=== PATIENT | female | born 1985 | race Caucasian/White ===

== ENCOUNTER 2020-11-23 11:28 | Inpatient (IN) | payer OTHER ==
[~2020-11-23] VITALS: Ht 165.1 cm; Wt 92.3 kg
[~2020-11-23 11:28] MED LIST: PRENPAK46 OR
[2020-11-23 13:12] LABS: Basophils # (auto) 0.1 10 ^3/uL (0-0.2); Basophils % (auto) 0.8 % (0.0-2.0); Eosinophils # (auto) 0.1 10 ^3/uL (0-0.8); Eosinophils % (auto) 1.4 % (0.0-7.0); Hematocrit 38.6 % (36.0-46.0); Hemoglobin 13.4 g/dL (12.2-16.2); Lymphocytes # (auto) 1.1 10 ^3/uL (0.4-5.4); Lymphocytes % (auto) 14.1 % (10.0-50.0); Mean Corpuscular Hemoglobin 32.3 pg (28.0-32.0); Mean Corpuscular Hgb Conc. 34.8 g/dL (32.0-36.0); Mean Corpuscular Volume 92.9 fL (80.0-100.0); Monocytes # (auto) 0.7 10 ^3/uL (0-1.3); Monocytes % (auto) 9.1 % (0.0-12.0); Neutrophils # (auto) 6.1 10 ^3/uL (1.6-8.6); Neutrophils % (auto) 74.6 % (37.0-80.0); Platelet Count (auto) 303 10^3/uL (140-450); Red Blood Cells 4.15 10^6/uL (4.0-5.20); Red Cell Distribution Width 13.2 % (11.8-14.3); White Blood Cell 8.1 10^3/uL (4.4-10.8)
[2020-11-23 13:27] LABS: Albumin 3.6 g/dL (3.4-5.0); BUN/Creatinine Ratio 13.9; Calcium 8.8 mg/dL (8.5-10.1); Potassium 4.1 mmol/L (3.5-5.1)
[2020-11-23 13:28] LABS: Partial Thromboplastin Time 29.4 sec (23.0-31.2)
[2020-11-23 13:31] LABS: Bilirubin, Total 0.6 mg/dL (0.2-1.0); Total Protein 7.8 g/dL (6.4-8.2)
[2020-11-23] MEDS ORDERED: NITROGLYCERIN 0.4 MG SL TAB SL PRN (13:45)
[2020-11-23] MEDS ORDERED: hydrALAZINE HCL 20 MG/ML VL IV PRN (13:45)
[2020-11-23] MEDS ORDERED: MORPHINE SULF INJ 2 MG/ML SYRINGE 1ML IV PRN (13:45)
[2020-11-23] MEDS: HYDROcodone-ACET 10/325MG TAB PO PRN (17:34)
[2020-11-23 17:47] LABS: Urine Bacteria FEW /hpf (None Seen); Urine Blood 3+ /uL (Negative); Urine Specific Gravity 1.005 (1.001-1.035); Urine WBC 1 /hpf (0 - 5)
[2020-11-23] MEDS ORDERED: cefTRIAXone 1GM/50ML D5W 50 ML IV SCH (19:00)
[2020-11-23 20:19] VITALS: BP 127/76
[2020-11-23] MEDS ORDERED: LORA-655 PO (20:33)
[2020-11-23] MEDS ORDERED: SERT50TA PO (20:33)
[2020-11-23] MEDS: MORPHINE SULF INJ 2 MG/ML SYRINGE 1ML IV PRN (21:28)
[2020-11-23 21:32] VITALS: BP 127/76
[2020-11-24] MEDS: HYDROcodone-ACET 10/325MG TAB PO PRN ×2 (01:40→06:37)
[2020-11-24 05:00] VITALS: BP 114/66
[2020-11-24 05:37] LABS: Basophils # (auto) 0 10 ^3/uL (0-0.2); Basophils % (auto) 0.5 % (0.0-2.0); Eosinophils # (auto) 0.3 10 ^3/uL (0-0.8); Eosinophils % (auto) 3.8 % (0.0-7.0); Hematocrit 34.9 % (36.0-46.0); Hemoglobin 12.5 g/dL (12.2-16.2); Lymphocytes # (auto) 1.5 10 ^3/uL (0.4-5.4); Mean Corpuscular Hemoglobin 33.1 pg (28.0-32.0); Mean Corpuscular Hgb Conc. 35.7 g/dL (32.0-36.0); Mean Corpuscular Volume 92.6 fL (80.0-100.0); Monocytes # (auto) 0.9 10 ^3/uL (0-1.3); Monocytes % (auto) 10.5 % (0.0-12.0); Neutrophils # (auto) 6.1 10 ^3/uL (1.6-8.6); Neutrophils % (auto) 68.2 % (37.0-80.0); Nucleated Red Blood Cells % 0.2 %; Platelet Count (auto) 286 10^3/uL (140-450); Red Blood Cells 3.77 10^6/uL (4.0-5.20); Red Cell Distribution Width 13.1 % (11.8-14.3)
[2020-11-24 05:55] LABS: Calcium 8.5 mg/dL (8.5-10.1); Potassium 3.9 mmol/L (3.5-5.1)
[2020-11-24 05:58] LABS: BUN/Creatinine Ratio 19.7
[2020-11-24 07:35] VITALS: BP 117/53
[2020-11-24 09:00] VITALS: BP 117/53
[2020-11-24] MEDS: MORPHINE SULF INJ 2 MG/ML SYRINGE 1ML IV PRN (10:59)
[2020-11-24] MEDS ORDERED: ceFAZolin 1GM/50ML 50 ML IV ONE ×2 (12:17→12:40)
[2020-11-24 12:56] VITALS: BP 127/70
[2020-11-24] MEDS ORDERED: MIDAZOLAM HCL 1MG/1ML-2 ML VIAL ONE (13:56)
[2020-11-24] MEDS ORDERED: fentaNYL CITRATE 5 ML ONE (13:57)
[2020-11-24] MEDS ORDERED: LIDOCAINE 2% (LOCAL ANESTH.) PF 5ml SDV ONE (15:33)
[2020-11-24] MEDS ORDERED: PROPOFOL 10 MG/ML 20 ML IV ONE (15:33)
[2020-11-24] MEDS ORDERED: ONDANSETRON HCL 4 MG/2 ML VIAL ONE (15:33)
[2020-11-24] MEDS ORDERED: HYDROmorphone HCL 2 MG/ML VL ONE ×2 (15:34→17:17)
[2020-11-24] MEDS ORDERED: METOCLOPRAMIDE HCL 5MG/ml INJ 2ml VIAL IV PRN (17:15)
[2020-11-24] MEDS ORDERED: HYDROmorphone HCL 2 MG/ML VL IV PRN (17:15)
[2020-11-24] MEDS ORDERED: METOCLOPRAMIDE HCL 5MG/ml INJ 2ml VIAL ONE (17:16)
[2020-11-24] MEDS: HYDROmorphone HCL 2 MG/ML VL IV PRN ×3 (17:20→20:26)
[2020-11-24] MEDS ORDERED: ACETAMINOPHEN 325 MG TAB PO PRN (17:30)
[2020-11-24] MEDS ORDERED: HYDROcodone-ACET 10/325MG TAB PO PRN (17:30)
[2020-11-24] MEDS: KETOROLAC TROMETH 30 MG/ML 1ML VIAL IV SCH ×2 (18:54→23:40)
[2020-11-24] MEDS: D5W/LACTATED RINGERS 1,000 ML IV SCH (19:03)
[2020-11-24 22:00] VITALS: BP 128/75
[2020-11-24] MEDS: ceFAZolin 1GM 2 GM in D5W 5% 100 ML IV SCH (22:20)
[2020-11-24] MEDS: SODIUM CHLOR 0.9% PF (SALINE LOCK) 10ML VIAL/SYR IV SCH (22:20)
[2020-11-25] MEDS: D5W/LACTATED RINGERS 1,000 ML IV SCH (03:30)
[2020-11-25 04:52] VITALS: BP 111/63
[2020-11-25] MEDS: HYDROmorphone HCL 2 MG/ML VL IV PRN ×2 (04:57→09:13)
[2020-11-25 05:55] LABS: Basophils # (auto) 0.1 10 ^3/uL (0-0.2); Basophils % (auto) 0.7 % (0.0-2.0); Eosinophils # (auto) 0.1 10 ^3/uL (0-0.8); Eosinophils % (auto) 0.9 % (0.0-7.0); Hematocrit 32.6 % (36.0-46.0); Hemoglobin 11.6 g/dL (12.2-16.2); Lymphocytes # (auto) 1.3 10 ^3/uL (0.4-5.4); Lymphocytes % (auto) 16.4 % (10.0-50.0); Mean Corpuscular Hemoglobin 33.1 pg (28.0-32.0); Mean Corpuscular Hgb Conc. 35.5 g/dL (32.0-36.0); Monocytes # (auto) 0.9 10 ^3/uL (0-1.3); Monocytes % (auto) 10.9 % (0.0-12.0); Neutrophils # (auto) 5.6 10 ^3/uL (1.6-8.6); Neutrophils % (auto) 71.1 % (37.0-80.0); Nucleated Red Blood Cells % 0.1 %; Platelet Count (auto) 276 10^3/uL (140-450); Red Cell Distribution Width 12.8 % (11.8-14.3); White Blood Cell 7.9 10^3/uL (4.4-10.8)
[2020-11-25] MEDS: KETOROLAC TROMETH 30 MG/ML 1ML VIAL IV SCH ×2 (06:04→11:23)
[2020-11-25] MEDS: SODIUM CHLOR 0.9% PF (SALINE LOCK) 10ML VIAL/SYR IV SCH (06:05)
[2020-11-25] MEDS: ceFAZolin 1GM 2 GM in D5W 5% 100 ML IV SCH (06:10)
[2020-11-25 06:14] LABS: Potassium 3.8 mmol/L (3.5-5.1)
[2020-11-25 06:20] LABS: BUN/Creatinine Ratio 13.3; Calcium 8.4 mg/dL (8.5-10.1)
[2020-11-25 08:30] VITALS: BP 106/61
[2020-11-25 09:00] VITALS: BP 106/61
[2020-11-25] MEDS ORDERED: ENOXAPARIN SOD 40 MG/0.4 ML SYRINGE SC SCH (10:00)
[2020-11-25 10:50] VITALS: BP 106/61
== END 2020-11-25 12:05 | disposition home or self-care (01) | DRG 493 ==
LOC: ER 11:28 → OVERFLOW 13:31 → CENTRAL 19:55
PROVIDERS: ADMIT Internal Medicine; ATTEND Internal Medicine
PROC: BQ1DZZZ Fluoroscopy of Right Lower Leg (ICD-10-PCS; 2020-11-24)
PROC: 0QSG36Z Reposition Right Tibia with Intramedullary Internal Fixation Device, Percutaneous Approach (ICD-10-PCS; principal; 2020-11-24 13:54)
PROC: 0QSJ04Z Reposition Right Fibula with Internal Fixation Device, Open Approach (ICD-10-PCS; 2020-11-24 13:54)
DX: S82.841A Displaced bimalleolar fracture of right lower leg, initial encounter for closed fracture (principal); S82.201A Unspecified fracture of shaft of right tibia, initial encounter for closed fracture; Z20.822 Contact with and (suspected) exposure to COVID-19; F41.9 Anxiety disorder, unspecified; F32.9 Major depressive disorder, single episode, unspecified; W18.39XA Other fall on same level, initial encounter; Z80.1 Family history of malignant neoplasm of trachea, bronchus and lung; Y93.89 Activity, other specified; Y92.89 Other specified places as the place of occurrence of the external cause; Y99.8 Other external cause status; Z79.899 Other long term (current) drug therapy
CPT/HCPCS: 36415; 71045; 73590; 73600; 76001; 80048; 80053; 81001; 81025; 85025; 85610; 85730; 86850; 86900; 86901; 87426; 93005; G0378; J0690; J0696; J1885; J2001; J2250; J2405; J2704; J7060